=== PATIENT | male | born 1960 | race Caucasian/White ===

== ENCOUNTER 2016-12-24 19:28 | Emergency (ER) | payer BC ==
[2016-12-24] MEDS ORDERED: Nitroglycerin 0.4 MG Tab.SL SL PRN (19:36)
[2016-12-24] MEDS ORDERED: Sodium Chloride 0.9% 1,000 ML IV ONE (19:36)
[2016-12-24] MEDS ORDERED: Aspirin 81 MG Tab.Chew PO ONE (19:36)
--- NOTE | 2016-12-24 19:37 | EDM.PDOC ---
ED HPI GENERAL MEDICAL PROBLEM - General Chief Complaint: Chest Pain Stated Complaint: PT HAS BACK PAIN AND CHEST PAIN Time Seen by Provider: 12/24/16 19:37 Source of Information: Reports: Patient - History of Present Illness INITIAL COMMENTS - FREE TEXT/NARRATIVE: HISTORY AND PHYSICAL: History of present illness: []Patient with anxiety presents with chest pain shortness of breath for 1-1/2 weeks no radiation arm neck or jaw no diaphoresis no fever nausea vomiting chills sweats Patient does complain of back pain he states his back is been going out over the last week he does not associate the 2 together however appears he has epigastric pain radiating to the back Denies medications chronic illness disease no prior cardiac history Patient denies alcohol or illicit drugs she does smoke 1 pack of cigarettes daily Review of systems: As per history of present illness and below otherwise all systems reviewed and negative. Past medical history: As per history of present illness and as reviewed below otherwise noncontributory. Surgical history: As per history of present illness and as reviewed below otherwise noncontributory. Social history: No reported history of drug or alcohol abuse. Family history: As per history of present illness and as reviewed below otherwise noncontributory. Physical exam: HEENT: Atraumatic, normocephalic, pupils reactive, negative for conjunctival pallor or scleral icterus, mucous membranes moist, throat clear, neck supple, nontender, trachea midline. Lungs: Clear to auscultation, breath sounds equal bilaterally, chest nontender. Heart: S1S2, regular, negative for clicks, rubs, or JVD. Abdomen: Soft, nondistended, nontender. Negative for masses or hepatosplenomegaly. Negative for costovertebral tenderness. Pelvis: Stable nontender. Genitourinary: Deferred. Rectal: Deferred. Extremities: Atraumatic, negative for cords or calf pain. Neurovascular unremarkable. Neuro: Awake, alert, oriented. Cranial nerves II through XII unremarkable. Cerebellum unremarkable. Motor and sensory unremarkable throughout. Exam nonfocal. Diagnostics: []Lab as below EKG Chest [address] abdomen pelvis with contrast Therapeutics: []Aspirin 324 mg chewable 1 L normal saline bolus Lopressor 5 mg IV Nitroglycerin 0.4 sublingual no benefit Toradol 30 mg IV Cataflam 50 mg by mouth 3 times a day when necessary #30 no refill Patient has appointment scheduled with Dr. Lees in the a.m. his primary care he will follow with her, he declines admission to workup the pancreatitis there is no CT evidence of pancreatitis however lipase and amylase are both mildly elevated patient has essentially met criteria for discharge as his pain is tolerable and he is able to eat a full diet, hence patient desires to follow with primary to complete workup for pancreatitis Impression: []Mild Pancreatitis Definitive disposition and diagnosis as appropriate pending reevaluation and review of above. Chest Pain Score (Numeric/FACES): 6 - Related Data Allergies Allergy/AdvReac Type Severity Reaction Status Date / Time No Known Allergies Allergy Verified 12/24/16 19:39 Home Meds: Home Meds . [No Known Home Meds] 12/24/16 [History] Past Medical History HEENT History: Reports: Other (See Below) Other HEENT History: nearsighted with astygmatism, uncorrected Cardiovascular History: Reports: Hypertension Musculoskeletal History: Reports: Other (See Below) Other Musculoskeletal History: 5 rib fractures on left side Psychiatric History: Reports: Depression - Infectious Disease History Infectious Disease History: Reports: Chicken Pox - Past Surgical History HEENT Surgical History: Reports: Other (See Below) Musculoskeletal Surgical History: Reports: Other (See Below) Social & Family History - Family History Family Medical History: Noncontributory Cardiac: Reports: Heart Failure, Other (See Below) Other Cardiac Family History: open heart surgery mothers side - Tobacco Use Smoking Status *Q: Current Every Day Smoker Years of Tobacco use: 30 Packs/Tins Daily: 0.5 - Alcohol Use Days Per Week of Alcohol Use: 0 - Recreational Drug Use Recreational Drug Use: No ED ROS GENERAL - Review of Systems Review Of Systems: ROS reveals no pertinent complaints other than HPI. ED EXAM, GENERAL - Physical Exam Exam: See Below Course - Vital Signs Last Recorded V/S: Last Vital Signs Temp 36.3 C 12/24/16 19:34 Pulse 93 12/24/16 19:54 Resp 17 12/24/16 19:34 BP 138/84 12/24/16 19:54 Pulse Ox 97 12/24/16 19:34 - Orders/Labs/Meds Orders: Active Orders 24 hr Category Date Time Status EKG Documentation Completion [RC] STAT Care 12/24/16 19:40 Active Abdomen Pelvis w Cont [CT] Stat Exams 12/24/16 20:12 Taken Chest 1V Frontal [CR] Stat Exams 12/24/16 19:40 Taken Nitroglycerin [Nitrostat] Med 12/24/16 19:36 Active 0.4 mg SL Q5M PRN Medication Orders Nitroglycerin (Nitrostat) 0.4 mg SL Q5M PRN PRN Reason: Chest Pain Last Admin: 12/24/16 19:49 Dose: 0.4 mg Labs: Laboratory Tests 12/24/16 12/24/16 12/24/16 Range/Units 19:41 19:41 19:41 WBC 9.01 (4.0-11.0) K/uL RBC 4.68 (4.50-5.90) M/uL Hgb 14.4 (13.0-17.0) g/dL Hct 41.9 (38.0-50.0) % MCV 89.5 (80.0-98.0) fL MCH 30.8 (27.0-32.0) pg MCHC 34.4 (31.0-37.0) g/dL RDW Std Deviation 46.6 (28.0-62.0) fl RDW Coeff of [place] 14 (11.0-15.0) % Plt Count 161 (150-400) K/uL MPV 10.60 (7.40-12.00) fL Neut % (Auto) 36.5 L (48.0-80.0) % Lymph % (Auto) 36.1 (16.0-40.0) % Bowman % (Auto) 12.7 (0.0-15.0) % Eos % (Auto) 14.3 H (0.0-7.0) % Baso % (Auto) 0.4 (0.0-1.5) % Neut # (Auto) 3.3 (1.4-5.7) K/uL Lymph # (Auto) 3.3 H (0.6-2.4) K/uL Bowman # (Auto) 1.1 H (0.0-0.8) K/uL Eos # (Auto) 1.3 H (0.0-0.7) K/uL Baso # (Auto) 0.0 (0.0-0.1) K/uL Nucleated RBC % 0.0 /100WBC Nucleated RBCs # 0 K/uL Sodium 142 (136-146) mmol/L Potassium 3.6 (3.5-5.1) mmol/L Chloride 108 (98-110) mmol/L Carbon Dioxide 24 (21-31) mmol/L BUN 15 (6.0-23.0) mg/dL Creatinine 0.7 (0.6-1.5) mg/dL Est Cr Clr Drug Dosing 134.75 mL/min Estimated GFR (MDRD) > 60.0 ml/min Glucose 105 (60-110) mg/dL Calcium 8.6 L (8.8-10.8) mg/dL Total Bilirubin 0.3 (0.1-1.5) mg/dL AST 37 (5-40) IU/L ALT 54 (8-54) IU/L Alkaline Phosphatase 62 (40-150) Troponin I < 0.10 (0.0-0.29) NG/ML Total Protein 7.1 (6.0-8.0) g/dL Albumin 3.4 L (3.5-5.0) g/dL Globulin 3.7 H (2.0-3.5) g/dL Albumin/Globulin Ratio 0.9 L (1.3-2.8) Amylase 95 H (10-90) U/L Lipase 120 H (7-80) U/L Urine Color Urine Appearance Urine pH (5.0-8.0) Ur Specific [place] (1.001-1.035) Urine Protein (NEGATIVE) mg/dL Urine Glucose (UA) (NEGATIVE) mg/dL Urine Ketones (NEGATIVE) mg/dL Urine Occult Blood (NEGATIVE) Urine Nitrite (NEGATIVE) Urine Bilirubin (NEGATIVE) Urine Urobilinogen (<2.0) EU/dL Ur Leukocyte Esterase (NEGATIVE) Urine RBC (0-2/HPF) Urine WBC (0-5/HPF) Ur Epithelial Cells (NONE-FEW) Urine Bacteria (NEGATIVE) 12/24/16 Range/Units 19:45 WBC (4.0-11.0) K/uL RBC (4.50-5.90) M/uL Hgb (13.0-17.0) g/dL Hct (38.0-50.0) % MCV (80.0-98.0) fL MCH (27.0-32.0) pg MCHC (31.0-37.0) g/dL RDW Std Deviation (28.0-62.0) fl RDW Coeff of [place] (11.0-15.0) % Plt Count (150-400) K/uL MPV (7.40-12.00) fL Neut % (Auto) (48.0-80.0) % Lymph % (Auto) (16.0-40.0) % Bowman % (Auto) (0.0-15.0) % Eos % (Auto) (0.0-7.0) % Baso % (Auto) (0.0-1.5) % Neut # (Auto) (1.4-5.7) K/uL Lymph # (Auto) (0.6-2.4) K/uL Bowman # (Auto) (0.0-0.8) K/uL Eos # (Auto) (0.0-0.7) K/uL Baso # (Auto) (0.0-0.1) K/uL Nucleated RBC % /100WBC Nucleated RBCs # K/uL Sodium (136-146) mmol/L Potassium (3.5-5.1) mmol/L Chloride (98-110) mmol/L Carbon Dioxide (21-31) mmol/L BUN (6.0-23.0) mg/dL Creatinine (0.6-1.5) mg/dL Est Cr Clr Drug Dosing mL/min Estimated GFR (MDRD) ml/min Glucose (60-110) mg/dL Calcium (8.8-10.8) mg/dL Total Bilirubin (0.1-1.5) mg/dL AST (5-40) IU/L ALT (8-54) IU/L Alkaline Phosphatase (40-150) Troponin I (0.0-0.29) NG/ML Total Protein (6.0-8.0) g/dL Albumin (3.5-5.0) g/dL Globulin (2.0-3.5) g/dL Albumin/Globulin Ratio (1.3-2.8) Amylase (10-90) U/L Lipase (7-80) U/L Urine Color YELLOW Urine Appearance CLEAR Urine pH 7.0 (5.0-8.0) Ur Specific [place] 1.020 (1.001-1.035) Urine Protein NEGATIVE (NEGATIVE) mg/dL Urine Glucose (UA) NEGATIVE (NEGATIVE) mg/dL Urine Ketones NEGATIVE (NEGATIVE) mg/dL Urine Occult Blood NEGATIVE (NEGATIVE) Urine Nitrite NEGATIVE (NEGATIVE) Urine Bilirubin NEGATIVE (NEGATIVE) Urine Urobilinogen 1.0 (<2.0) EU/dL Ur Leukocyte Esterase NEGATIVE (NEGATIVE) Urine RBC NONE SEEN (0-2/HPF) Urine WBC 0-1 (0-5/HPF) Ur Epithelial Cells RARE (NONE-FEW) Urine Bacteria RARE (NEGATIVE) Meds: Medications Generic Name Dose Route Start Last Admin Trade Name Freq PRN Reason Stop Dose Admin Nitroglycerin 0.4 mg 12/24/16 19:36 12/24/16 19:49 Nitrostat SL 0.4 mg Q5M PRN Administration Chest Pain Discontinued Medications Generic Name Dose Route Start Last Admin Trade Name Freq PRN Reason Stop Dose Admin Aspirin 324 mg 12/24/16 19:36 12/24/16 19:49 Aspirin PO 12/24/16 19:37 324 mg ONETIME ONE Administration Sodium Chloride 1,000 mls @ 999 mls/hr 12/24/16 19:36 12/24/16 19:51 Normal Saline IV 12/24/16 20:36 999 mls/hr STAT ONE Administration Iopamidol 100 ml 12/24/16 20:49 12/24/16 20:49 Isovue Multipack-370 (76%) IVPUSH 12/24/16 20:50 100 ml ONETIME STA Administration Ketorolac Tromethamine 30 mg 12/24/16 20:10 12/24/16 20:15 Toradol IVPUSH 12/24/16 20:11 30 mg ONETIME ONE Administration Lorazepam 1 mg 12/24/16 20:05 Ativan IVPUSH 12/24/16 20:06 ONETIME ONE Metoprolol Tartrate 5 mg 12/24/16 19:45 12/24/16 19:54 Lopressor IVPUSH 12/24/16 19:56 5 mg Q5M SIERRA Administration Departure - Departure Time of Disposition: 21:35 Disposition: Home, Self-Care 01 Condition: Good Clinical Impression: Pancreatitis - Discharge Information Referrals: PCP,None [Primary Care Provider] - Forms: ED Department Discharge Additional Instructions: Fluid hydration techniques as discussed Diet as tolerated Return if symptoms persist or worsen Follow-up with primary care tomorrow as you have mentioned The following information is given to patients seen in the emergency department who are being discharged to home. This information is to outline your options for follow-up care. We provide all patients seen in our emergency department with a follow-up referral. The need for follow-up, as well as the timing and circumstances, are variable depending upon the specifics of your emergency department visit. If you don't have a primary care physician on staff, we will provide you with a referral. We always advise you to contact your personal physician following an emergency department visit to inform them of the circumstance of the visit and for follow-up with them and/or the need for any referrals to a consulting specialist. The emergency department will also refer you to a specialist when appropriate. This referral assures that you have the opportunity for follow-up care with a specialist. All of these measure are taken in an effort to provide you with optimal care, which includes your follow-up. Under all circumstances we always encourage you to contact your private physician who remains a resource for coordinating your care. When calling for follow-up care, please make the office aware that this follow-up is from your recent emergency room visit. If for any reason you are refused follow-up, please contact the [facility] emergency department at and asked to speak to the emergency department charge nurse. - My Orders Last 24 Hours: My Active Orders 12/24/16 19:36 Nitroglycerin [Nitrostat] 0.4 mg SL Q5M PRN 12/24/16 19:40 EKG Documentation Completion [RC] STAT Chest 1V Frontal [CR] Stat 12/24/16 20:12 Abdomen Pelvis w Cont [CT] Stat - Assessment/Plan Last 24 Hours: My Active Orders 12/24/16 19:36 Nitroglycerin [Nitrostat] 0.4 mg SL Q5M PRN 12/24/16 19:40 EKG Documentation Completion [RC] STAT Chest 1V Frontal [CR] Stat 12/24/16 20:12 Abdomen Pelvis w Cont [CT] Stat
[2016-12-24] MEDS ORDERED: Metoprolol Tartrate 5 MG/5 ML SDV IVPUSH SCH (19:45)
[2016-12-24 20:05] LABS: CHLORIDE,CL 108 mmol/L (98-110); SODIUM,NA 142 mmol/L (136-146)
[2016-12-24] MEDS ORDERED: LORazepam 2 MG/ML MDV IVPUSH ONE (20:05)
[2016-12-24] MEDS ORDERED: Ketorolac 30 MG/ML SDV IVPUSH ONE (20:10)
[2016-12-24] MEDS ORDERED: Iopamidol 755 MG/ML 500 ML Multipack Bottle IVPUSH STA (20:49)
[2016-12-24 21:49] VITALS: BP 131/83
[2016-12-25] MEDS ORDERED: Nitroglycerin 0.4 MG Tab.SL ONE (05:37)
--- NOTE | 2016-12-25 13:26 | CR ---
EXAM DATE: 12/24/16 PATIENT'S AGE: 56 Patient: MICHELLE SAMANO Facility: [place], [place] Site . Site : 1960 Study: XRay Chest [id number] 7:56:19 PM Ordering Physician: Doctor Sheets Final Report: INDICATION: chest pain x 1 wk CHEST, ONE VIEW An AP radiograph of the chest was performed. Comparison: 09/30/2015. The lungs appear clear and no pleural effusions are identified. The cardiomediastinal silhouette and pulmonary vasculature appear normal, as do the visualized bones. Unchanged small metallic foreign body over the anterior chest. IMPRESSION: No acute intrathoracic abnormality identified. CALVIN WARD MD [employer] Dictated by: Harman Ward MD @ 12/24/2016 20:06:53 (Electronic Signature) Report Signed by Proxy. [facility]
--- NOTE | 2016-12-25 13:30 | CT ---
EXAM DATE: 12/24/16 PATIENT'S AGE: 56 Patient: MICHELLE SAMANO Facility: [place], [place] Site . Site : 1960 Study: CT Abdomen/Pelvis W CONT [id number] 8:52:12 PM Ordering Physician: Arnulfo Farooq Final Report: INDICATION: Elevated pancreatic enzymes TECHNIQUE: CT abdomen and pelvis acquired with i.v. 100 cc Isovue 370. Coronal and sagittal reformats were obtained. COMPARISON: None FINDINGS: Lower chest: Unremarkable. Liver: Unremarkable. Spleen: Unremarkable. Pancreas: Unremarkable. Gallbladder and bile ducts: Unremarkable. Kidneys: Unremarkable. No kidney or ureteral stones and no hydronephrosis seen. Adrenal glands: Unremarkable. GI tract: Unremarkable. The appendix is not identified. Vascular: The main portal vein measures 1.5 cm in diameter. Lymph nodes: Periportal lymph nodes are present measuring up to 1 cm. Miscellaneous: Unremarkable. No pneumoperitoneum is seen. No significant ascites is noted. Pelvic Organs: Unremarkable. Bones: Unremarkable for age. IMPRESSION: 1. The pancreas is unremarkable in appearance by CT. 2. Enlargement of the main portal vein is present which may be due to portal hypertension. 3. Mild periportal adenopathy noted. Dictated by Guillermo Moran MD @ 12/24/2016 9:13:54 PM Dictated by: Guillermo Moran MD @ 12/24/2016 21:14:01 (Electronic Signature) Report Signed by Proxy. [facility]
== END 2016-12-24 21:45 | disposition home or self-care (01) ==
LOC: MW.ED 19:28
DX: K85.90 Acute pancreatitis without necrosis or infection, unspecified (principal); I10 Essential (primary) hypertension; F32.9 Major depressive disorder, single episode, unspecified; F17.210 Nicotine dependence, cigarettes, uncomplicated
CPT/HCPCS: 36415; 71010; 74177; 80053; 81001; 82150; 83690; 84484; 85025; 93005; 96361; 96374; 96375; 99285; A9270; J1885; J7040; Q9967; 99283

== ENCOUNTER 2018-09-09 20:58 | Emergency (ER) | payer SELFPAY ==
--- NOTE | 2018-09-09 21:04 | EDM.PDOC ---
ED HPI GENERAL MEDICAL PROBLEM - General Chief Complaint: Lower Extremity Injury/Pain Stated Complaint: BACK PAIN Time Seen by Provider: 09/09/18 21:03 Source of Information: Reports: Patient History Limitations: Reports: No Limitations - History of Present Illness INITIAL COMMENTS - FREE TEXT/NARRATIVE: HISTORY AND PHYSICAL: History of present illness: Patient is a 57-year-old male who presents to the emergency room with complaints of bilateral hip pain and lumbar back pain. He reports he was outside mowing the lawn when he fell onto his left side. Was able to walk into the house and rest. He proceeded to go outside to attempt to finish mowing when he fell a second time falling onto his right side. He was able to ambulate inside, took Motrin which did not alleviate his discomfort. He denies hitting his head or having any loss of consciousness. Review of systems: As per history of present illness and below otherwise all systems reviewed and negative. Past medical history: As per history of present illness and as reviewed below otherwise noncontributory. Surgical history: As per history of present illness and as reviewed below otherwise noncontributory. Social history: See social history for further information Family history: As per history of present illness and as reviewed below otherwise noncontributory. Physical exam: General: Well developed and well nourished 57 showed male. Alert and oriented. Nontoxic appearing and in no acute distress. HEENT: Atraumatic, normocephalic, pupils equal and reactive bilaterally, negative for conjunctival pallor or scleral icterus, mucous membranes moist, TMs normal bilaterally, throat clear, neck supple, nontender, trachea midline. No drooling or trismus noted. No meningeal signs. No hot potato voice noted. Lungs: Clear to auscultation, breath sounds equal bilaterally, chest nontender. Heart: S1S2, regular rate and rhythm without overt murmur Abdomen: Soft, nondistended, nontender. Negative for masses or hepatosplenomegaly. Negative for costovertebral tenderness. Pelvis: Stable nontender. Genitourinary: Deferred. Rectal: Deferred. Skin: Intact, warm, dry. No lesions or rashes noted. Extremities: Atraumatic, moves all extremities per self without difficulty or deficits, negative for cords or calf pain. Neurovascular unremarkable. C-spine/Back: No pinpoint vertebral tenderness upon palpation. No crepitus, step -offs or obvious deformities. Patient was ambulatory into the emergency room without difficulty, deficits or weakness. He denies any urinary or fecal incontinence. Denies any numbness, tingling or saddle paresthesias. Neuro: Awake, alert, oriented. Cranial nerves II through XII unremarkable. Cerebellum unremarkable. Motor and sensory unremarkable throughout. Exam nonfocal. Notes: Imaging is unremarkable. Did find relief with the injection.Supportive care measures were reviewed and discussed. Voices understanding and is agreeable to plan of care. Denies any further questions or concerns at this time. Diagnostics: Lumbar back CT, pelvis with bilateral hip x-ray Therapeutics: Dilaudid IM Prescription: [place] (#30) Impression: Lumbar back pain Bilateral hip pain Plan: 1. The medication he received as an injection today does cause drowsiness so do not drive for the remaining day 2. When resting please lay on a flat firm surface. Limit your immobility to prevent muscle stiffness, get up to ambulate/move around/gentle stretching multiple times throughout the day. May alternate heat and ice to the painful areas 3. Tylenol and/or ibuprofen as needed for back pain. [place] for moderate to severe pain, this medication may cause drowsiness a do not take it will driving her needing to be functioning outside of the house. 4. Please follow-up with your primary care provider as we discussed. Return to the ED as needed and as discussed. Definitive disposition and diagnosis as appropriate pending reevaluation and review of above. bilateral hipsd Pain Score (Numeric/FACES): 10 - Related Data Allergies Allergy/AdvReac Type Severity Reaction Status Date / Time No Known Allergies Allergy Verified 09/09/18 21:01 Home Meds: Home Meds . [No Known Home Meds] 12/24/16 [History] Past Medical History HEENT History: Reports: Other (See Below) Other HEENT History: nearsighted with astygmatism, uncorrected Cardiovascular History: Reports: Hypertension Gastrointestinal History: Reports: None Musculoskeletal History: Reports: Other (See Below) Other Musculoskeletal History: 5 rib fractures on left side Psychiatric History: Reports: Depression - Infectious Disease History Infectious Disease History: Reports: Chicken Pox - Past Surgical History HEENT Surgical History: Reports: Other (See Below) Musculoskeletal Surgical History: Reports: Other (See Below) Social & Family History - Family History Family Medical History: Noncontributory Cardiac: Reports: Heart Failure, Other (See Below) Other Cardiac Family History: open heart surgery mothers side - Caffeine Use Caffeine Use: Reports: Coffee, Energy Drinks, Soda Caffeine Use Comment: "periodically" Review of Systems - Review of Systems Review Of Systems: ROS reveals no pertinent complaints other than HPI. ED EXAM, GENERAL - Physical Exam Exam: See Below (See dictation) Course - Vital Signs Last Recorded V/S: Last Vital Signs Temp 99.4 F 09/09/18 21:01 Pulse 108 H 09/09/18 21:01 Resp 18 09/09/18 21:01 BP 137/86 09/09/18 21:01 Pulse Ox 98 09/09/18 21:01 - Orders/Labs/Meds Orders: Active Orders 24 hr Category Date Time Status Hip Min 2V w Pelvis Bi [CR] Stat Exams 09/09/18 21:12 Taken Lumbar Spine wo Cont [CT] Stat Exams 09/09/18 21:12 Taken Meds: Medications Discontinued Medications Generic Name Dose Route Start Last Admin Trade Name Baljeet PRN Reason Stop Dose Admin Hydromorphone HCl 1 mg 09/09/18 21:12 Dilaudid IM 09/09/18 21:13 ONETIME ONE Hydromorphone HCl 1 mg 09/09/18 21:18 Dilaudid IM 09/09/18 21:19 ONETIME ONE Departure - Departure Time of Disposition: 21:49 Disposition: Home, Self-Care 01 Clinical Impression: Lumbar back pain, Bilateral hip pain - Discharge Information Instructions: Acute Back Pain, Adult Forms: ED Department Discharge Additional Instructions: The following information is given to patients seen in the emergency department who are being discharged to home. This information is to outline your options for follow-up care. We provide all patients seen in our emergency department with a follow-up referral. The need for follow-up, as well as the timing and circumstances, are variable depending upon the specifics of your emergency department visit. If you don't have a primary care physician on staff, we will provide you with a referral. We always advise you to contact your personal physician following an emergency department visit to inform them of the circumstance of the visit and for follow-up with them and/or the need for any referrals to a consulting specialist. The emergency department will also refer you to a specialist when appropriate. This referral assures that you have the opportunity for follow-up care with a specialist. All of these measure are taken in an effort to provide you with optimal care, which includes your follow-up. Under all circumstances we always encourage you to contact your private physician who remains a resource for coordinating your care. When calling for follow-up care, please make the office aware that this follow-up is from your recent emergency room visit. If for any reason you are refused follow-up, please contact the [facility] Emergency Department at and asked to speak to the emergency department charge nurse. [facility] [address] [place] [address] [facility] [address] [place] [address] 1. The medication he received as an injection today does cause drowsiness so do not drive for the remaining day 2. When resting please lay on a flat firm surface. Limit your immobility to prevent muscle stiffness, get up to ambulate/move around/gentle stretching multiple times throughout the day. May alternate heat and ice to the painful areas 3. Tylenol and/or ibuprofen as needed for back pain. [place] for moderate to severe pain, this medication may cause drowsiness a do not take it will driving her needing to be functioning outside of the house. 4. Please follow-up with your primary care provider as we discussed. Return to the ED as needed and as discussed. - My Orders Last 24 Hours: My Active Orders 09/09/18 21:12 Hip Min 2V w Pelvis Bi [CR] Stat Lumbar Spine wo Cont [CT] Stat - Assessment/Plan Last 24 Hours: My Active Orders 09/09/18 21:12 Hip Min 2V w Pelvis Bi [CR] Stat Lumbar Spine wo Cont [CT] Stat
[2018-09-09] MEDS ORDERED: HYDROmorphone 2 MG/ML SDV IM ONE (21:12)
[2018-09-09] MEDS ORDERED: HYDROmorphone 1 MG/ML Syringe IM ONE (21:18)
--- NOTE | 2018-09-09 22:22 | CT ---
INDICATION: Fall. Pain. TECHNIQUE: Noncontrast CT images were obtained through the lumbar spine. COMPARISON: None. FINDINGS: The lumbar lordosis is maintained. Vertebral body heights are preserved. No acute fracture. Small Schmorl`s nodes from L1-2 through L4-5. T12-L1: No spinal canal or neural foraminal narrowing. L1-2: Trace retrolisthesis. No spinal canal or neural foraminal narrowing. L2-3: Trace retrolisthesis. Shallow annular bulge. No spinal canal or neural foraminal narrowing. L3-4: Trace retrolisthesis. Shallow posterior disc bulge. No spinal canal narrowing. Mild left without right neural foraminal narrowing. L4-5: Trace retrolisthesis. Shallow posterior disc bulge. Endplate spondylitic ridging. No spinal canal narrowing. [id number] left and mild right neural foraminal narrowing. L5-S1: Posterior disc bulge. Endplate spondylitic ridging. Mild bilateral facet arthropathy. No spinal canal narrowing. Mild left without right neural foraminal narrowing. Mild sacroiliac joint degenerative changes. Aortoiliac atherosclerotic calcifications. Colonic diverticulosis. IMPRESSION: 1. No acute fracture. 2. Mild multilevel lumbar spondylosis includes low-grade neural foraminal narrowing. 3. Small Schmorl`s nodes from L1-2 through L4-5. Please note that all CT scans at this facility use dose modulation, iterative reconstruction, and/or weight-based dosing when appropriate to reduce radiation dose to as low as reasonably achievable. Dictated by Kenny Osei MD @ Sep 09 2018 10:11PM Signed by Dr. Kenny Osei @ Sep 09 2018 10:21PM
--- NOTE | 2018-09-09 22:24 | CR ---
Indication: Bilateral hip pain after fall Technique: Frontal view pelvis, frontal and frog-leg lateral views bilateral hips Comparison: None Findings: The pelvic ring is intact. No acute fracture subluxation. No suspicious osseous lesion. Mild degenerative changes in both hip joints, left greater than right. Impression: Negative. Dictated by Suzanne Horta MD @ Sep 09 2018 10:21PM Signed by Dr. Suzanne Horta @ Sep 09 2018 10:24PM
[2018-09-09 22:37] VITALS: BP 157/99
== END 2018-09-09 22:46 | disposition home or self-care (01) ==
LOC: MW.ED 20:58
DX: M25.551 Pain in right hip (principal); M25.552 Pain in left hip; M54.5 Low back pain; I10 Essential (primary) hypertension; F32.9 Major depressive disorder, single episode, unspecified
CPT/HCPCS: 72131; 73521; 96372; 99283; J1170

== ENCOUNTER 2018-09-11 14:00 | Emergency (ER) | payer SELFPAY | END 2018-09-11 14:10 | disposition left against medical advice (07) | LOC: MW.ED 14:00 | DX: Z53.21 Procedure and treatment not carried out due to patient leaving prior to being seen by health care provider (principal) ==

== ENCOUNTER 2018-11-17 11:06 | Emergency (ER) | payer OTHER ==
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
[2018-11-17] MEDS ORDERED: Acetaminophen 500 MG Tab PO ONE (12:02)
--- NOTE | 2018-11-17 12:38 | CT ---
INDICATION: Head injury TECHNIQUE: CT head without contrast. COMPARISON: None. FINDINGS: CSF spaces: Within normal limits for age. Brain parenchyma and extra-axial spaces: There is a mixed density right frontal subdural hematoma measuring 7 mm in thickness. Small subarachnoid blood is also present in this area. No mass effect or midline shift. Rodriguez-white matter distinction is intact. Skull base and calvarium: The visualized paranasal sinuses and mastoid air cells demonstrate no acute or significant findings. The visualized orbits are grossly unremarkable. No skull fractures. IMPRESSION: Right frontal subdural and subarachnoid hemorrhages without mass effect or midline shift. Results discussed with JENNIFER Balderrama at 1235 hours. Please note that all CT scans at this facility use dose modulation, iterative reconstruction, and/or weight-based dosing when appropriate to reduce radiation dose to as low as reasonably achievable. Dictated by Jag Chen MD @ Nov 17 2018 12:25PM Signed by Dr. Jag Chen @ Nov 17 2018 12:37PM
--- NOTE | 2018-11-17 12:42 | CT ---
INDICATION: Facial injury TECHNIQUE: CT maxillofacial without contrast. COMPARISON: None FINDINGS: Facial bones: Acute nondisplaced fracture is in the right mandibular ramus. No other fractures and no dislocations. Orbits and globes: Unremarkable. Globes are intact. No sign of intraorbital hemorrhage or emphysema. Sinuses: No acute or significant findings. Soft tissues: There is multifocal periodontal disease. Like periorbital soft tissue hematoma. IMPRESSION: Acute nondisplaced fracture of the right mandibular ramus and left periorbital soft tissue hematoma. No other signs of acute injury. Please note that all CT scans at this facility use dose modulation, iterative reconstruction, and/or weight-based dosing when appropriate to reduce radiation dose to as low as reasonably achievable. Dictated by Jag Chen MD @ Nov 17 2018 12:25PM Signed by Dr. Jag Chen @ Nov 17 2018 12:40PM
[2018-11-17 12:53] VITALS: BP 144/86
[2018-11-17 13:42] LABS: CHLORIDE,CL 107 mmol/L (98-107); SODIUM,NA 139 mmol/L (136-148)
== END 2018-11-17 15:17 | disposition home or self-care (01) ==
LOC: MW.ED 11:06
DX: S06.6X0A Traumatic subarachnoid hemorrhage without loss of consciousness, initial encounter (principal); S06.5X0A Traumatic subdural hemorrhage without loss of consciousness, initial encounter; S02.641A Fracture of ramus of right mandible, initial encounter for closed fracture; S01.81XA Laceration without foreign body of other part of head, initial encounter; S01.21XA Laceration without foreign body of nose, initial encounter; I10 Essential (primary) hypertension; F17.210 Nicotine dependence, cigarettes, uncomplicated; Y04.0XXA Assault by unarmed brawl or fight, initial encounter
CPT/HCPCS: 36415; 70450; 70486; 80053; 85025; 85610; 99284; A9270

== ENCOUNTER 2024-03-18 04:22 | Emergency (ER) | payer BC, OTHER ==
[2024-03-18 04:51] LABS: HEMATOCRIT 50.9 % (42.0-52.0); HEMOGLOBIN 17.2 g/dL (14.0-18.0); MEAN CORPUSCULAR HEMOGLOBIN 29.4 pg (28.0-32.0); MEAN CORPUSCULAR HGB CONC 33.8 g/dL (32.0-36.0); MEAN PLATELET VOLUME 10.6 fL (9.4-12.4); PLATELET COUNT,PLT 218 K/uL (150-400); RED BLOOD CELL COUNT 5.85 M/uL (4.52-5.90); WHITE BLOOD CELL COUNT,WBC 11.77 K/uL (3.9-11.3)
[2024-03-18 05:18] LABS: A/G RATIO 0.8 (0.9-1.6); ALANINE AMINOTRANSFERASE,ALT 62 IU/L (14-63); ALBUMIN 3.3 g/dL (3.4-5.0); ALKALINE PHOSPHATASE 76 U/L (46-116); ASPARTATE AMNIOTRANSFERASE,AST 57 IU/L (15-37); BILIRUBIN TOTAL 0.3 mg/dL (0.2-1.0); BLOOD UREA NITROGEN,BUN 10 mg/dL (7.0-18.0); CALCIUM 8.7 mg/dL (8.5-10.1); CARBON DIOXIDE,CO2 27.3 mmol/L (21.0-32.0); CHLORIDE,CL 102 mmol/L (98-107); EST CRCL DRUG DOSING (CG) 84.07 mL/min; GLUCOSE RANDOM 118 mg/dL (74-106); POTASSIUM,K 4.1 mmol/L (3.5-5.1); PROTEIN TOTAL,TP 7.3 g/dL (6.4-8.2); SODIUM,NA 137 mmol/L (136-148)
[2024-03-18] MEDS: LORazepam 2 MG/ML SDV IVPUSH ONE (05:20)
[2024-03-18] MEDS: Aspirin 81 MG Tab.Chew PO ONE (05:20)
[2024-03-18] MEDS: Albuterol/Ipratropium 3.0-0.5 MG/3 ML Neb Soln NEB ONE (05:20)
[2024-03-18 05:24] LABS: BASOPHILS ABSOLUTE MAN 0.35 K/uL (0.00-0.20); BASOPHILS PERCENT MAN 3 % (0-1); EOSINOPHILS ABSOLUTE MAN 1.53 K/uL (0.00-0.45); EOSINOPHILS PERCENT MAN 13 % (0-6); LYMPHOCYTES ABSOLUTE MAN 2.12 K/uL (1.00-4.80); LYMPHOCYTES PERCENT MAN 18 % (24-44); MONOCYTES ABSOLUTE MAN 1.77 K/uL (0.00-0.80); MONOCYTES PERCENT MAN 15 % (0-8); SEG NEUTROPHILS PERCENT MAN 51 % (41-71)
[2024-03-18 05:26] LABS: BILIRUBIN DIRECT <0.05 mg/dL (0.0-0.5); ESTIMATED GFR 85 mL/min (>60)
[2024-03-18 07:01] VITALS: BP 147/86; PULSE 82
== END 2024-03-18 07:01 | disposition home or self-care (01) ==
LOC: MW.ED 04:22
DX: R07.9 Chest pain, unspecified (principal); I10 Essential (primary) hypertension; E78.00 Pure hypercholesterolemia, unspecified; Z79.899 Other long term (current) drug therapy; Z90.49 Acquired absence of other specified parts of digestive tract
CPT/HCPCS: 36415; 71045; 80053; 82247; 82248; 84484; 85025; 93005; 96374; 99285; A9270; J2060; J7620-GY

== ENCOUNTER 2024-06-05 17:30 | Emergency (ER) | payer BC, MEDICAID ==
[2024-06-05] MEDS: Acetaminophen 500 MG Tab PO ONE (18:23)
[2024-06-05] MEDS: Dexamethasone 4 MG Tab PO ONE (18:23)
[2024-06-05] MEDS: tiZANidine 4 MG Tab PO ONE (18:24)
[2024-06-05] MEDS: Lidocaine 4% Patch TOP ONE (18:24)
[2024-06-05] MEDS: Lisinopril 10 MG Tab PO ONE (18:29)
[2024-06-05] MEDS: Ketorolac 30 MG/ML SDV IM ONE (18:29)
[2024-06-05 19:43] VITALS: BP 156/106; PULSE 85
== END 2024-06-05 18:56 | disposition home or self-care (01) ==
LOC: MW.ED 17:30
DX: G89.29 Other chronic pain (principal); M54.42 Lumbago with sciatica, left side; I10 Essential (primary) hypertension; E78.00 Pure hypercholesterolemia, unspecified; Z91.141 Patient's other noncompliance with medication regimen due to financial hardship; Z90.49 Acquired absence of other specified parts of digestive tract; Z79.899 Other long term (current) drug therapy
CPT/HCPCS: 96372; 99283; A9270; J1885; J8540

== ENCOUNTER 2024-08-29 17:41 | Emergency (ER) | payer MEDICAID ==
[2024-08-29 17:49] VITALS: BP 155/96; PULSE 86
[2024-08-29] MEDS: Lidocaine 4% Patch TOP PRN (18:30)
[2024-08-29] MEDS: Ketorolac 30 MG/ML SDV IM STA (18:30)
[2024-08-29] MEDS: Orphenadrine 60 MG/2 ML Inj IM ONE (18:30)
== END 2024-08-29 20:02 | disposition home or self-care (01) ==
LOC: MW.ED 17:41
DX: M54.31 Sciatica, right side (principal); I10 Essential (primary) hypertension; F17.210 Nicotine dependence, cigarettes, uncomplicated; Z79.899 Other long term (current) drug therapy; E78.00 Pure hypercholesterolemia, unspecified
CPT/HCPCS: 73552; 96372; 99283; A9270; J1885; J2360

== ENCOUNTER 2024-11-09 06:43 | Emergency (ER) | payer MEDICAID ==
[2024-11-09] MEDS: methylPREDNISolone Sodium Succinate 125 MG/2 ML SDV IVPUSH ONE (06:59)
[2024-11-09 07:00] LABS: MEAN PLATELET VOLUME 10.9 fL (9.4-12.4); NRBC ABSOLUTE 0.00 K/uL (0.00-0.02); NRBC PERCENT 0.0 /100WBC (0.0-0.2); PLATELET COUNT,PLT 198 K/uL (150-400); RED BLOOD CELL COUNT 5.51 M/uL (4.52-5.90); WHITE BLOOD CELL COUNT,WBC 10.67 K/uL (3.9-11.3)
[2024-11-09 07:20] LABS: INR 1.05 (0.86-1.11)
[2024-11-09 07:32] LABS: A/G RATIO 1.1 (0.9-1.6); ALANINE AMINOTRANSFERASE,ALT 42.0 IU/L (14-63); ASPARTATE AMNIOTRANSFERASE,AST 28.0 IU/L (15-37); BILIRUBIN TOTAL 0.4 mg/dL (0.2-1.0); BLOOD UREA NITROGEN,BUN 26.0 mg/dL (7.0-18.0); CARBON DIOXIDE,CO2 26.1 mmol/L (21.0-32.0); CHLORIDE,CL 104.0 mmol/L (98-107); CREATININE 1.0 mg/dL (0.8-1.3); EST CRCL DRUG DOSING (CG) 82.99 mL/min; GLUCOSE RANDOM 96.0 mg/dL (74-106); POTASSIUM,K 4.2 mmol/L (3.5-5.1); PROTEIN TOTAL,TP 7.9 g/dL (6.4-8.2); SODIUM,NA 139.0 mmol/L (136-148)
[2024-11-09 07:34] LABS: ESTIMATED GFR 85.0 mL/min (>60)
[2024-11-09 07:48] LABS: EOSINOPHILS ABSOLUTE MAN 0.21 K/uL (0.00-0.45); EOSINOPHILS PERCENT MAN 2 % (0-6); LYMPHOCYTES ABSOLUTE MAN 1.49 K/uL (1.00-4.80); LYMPHOCYTES PERCENT MAN 14 % (24-44); MONOCYTES ABSOLUTE MAN 1.39 K/uL (0.00-0.80); MONOCYTES PERCENT MAN 13 % (0-8); SEG NEUTROPHILS ABSOLUTE MAN 7.58 K/uL (1.80-7.70); SEG NEUTROPHILS PERCENT MAN 71 % (41-71)
[2024-11-09 09:26] VITALS: BP 130/76; PULSE 69
[2024-11-09] MEDS: Ketorolac 30 MG/ML SDV IVPUSH ONE (09:36)
== END 2024-11-09 09:50 | disposition home or self-care (01) ==
LOC: MW.ED 06:43
DX: T78.3XXA Angioneurotic edema, initial encounter (principal); M19.031 Primary osteoarthritis, right wrist; I10 Essential (primary) hypertension; E78.00 Pure hypercholesterolemia, unspecified; Z79.899 Other long term (current) drug therapy; Z88.8 Allergy status to other drugs, medicaments and biological substances
CPT/HCPCS: 36415; 36430; 73110; 80053; 85025; 85610; 85730; 86850; 86900; 86901; 96374; 96375; 99283; A9270; J1885; J2919; P9017